=== PATIENT | female | born 1990 | race American Indian/Alaskan Native ===

== ENCOUNTER 2019-03-12 07:57 | Emergency (ER) | payer SELFPAY ==
[2019-03-12] MEDS ORDERED: NACL 0.9% 1000 ML 1,000 ML IV ONE (08:45)
[2019-03-12] MEDS ORDERED: KCL 10MEQ/100ML 0 MEQ/0 ML BAG IV ONE (08:45)
[2019-03-12 09:07] LABS: Basophils % (Auto) 0.5 % (0.0-1.8); Eosinophils % (Auto) 0.5 % (0.0-4.3); Hematocrit 35.7 % (30.3-42.9); Hemoglobin 11.8 gm/dl (10.1-14.3); Lymphocytes # (Auto) 1.1 K/mm3 (1.2-5.4); Lymphocytes % (Auto) 11.6 % (13.4-35.0); Mean Corpuscular HGB Conc 33 % (30-34); Mean Corpuscular Volume 84 fl (79-97); Monocytes # (Auto) 0.6 K/mm3 (0.0-0.8); Monocytes % (Auto) 6.1 % (0.0-7.3); Platelet Count 328 K/mm3 (140-440); Red Blood Count 4.24 M/mm3 (3.65-5.03); Red Cell Distribution Width 15.1 % (13.2-15.2)
[2019-03-12] MEDS: MORPHINE IV ONE ×2 (09:21→10:15)
[2019-03-12] MEDS: ZOFRAN IV ONE ×2 (09:21→10:15)
[2019-03-12 09:30] LABS: Albumin 3.9 g/dL (3.9-5); BUN/Creatinine Ratio 16; Blood Urea Nitrogen 14 mg/dL (7-17); Calcium 8.3 mg/dL (8.4-10.2); Hemolysis Index 91
[2019-03-12 09:56] LABS: Bilirubin,Direct < 0.2 mg/dL (0-0.2)
[2019-03-12 10:03] LABS: Alanine Aminotransferase 18 units/L (7-56)
[2019-03-12 10:30] LABS: Bilirubin,Urine NEG (Negative); Blood,Urine LG (Negative); Color,Urine Yellow (Yellow); Mucus,Urine 1+ /HPF; Urobilinogen,Urine < 2.0 mg/dL (<2.0)
[2019-03-12 10:37] LABS: RBC,Urine > 182.0 /HPF (0.0-6.0)
--- NOTE | 2019-03-12 11:35 | Cat Scan Report ---
PROCEDURE: CT ABDOMEN PELVIS WO CON TECHNIQUE: Multiple contiguous axial images were obtained from the lung bases to the pubic symphysis without administration of IV contrast. Reformatted sagittal and coronal images were available for re view. HISTORY: Abdominal Pain COMPARISONS: None. FINDINGS: Lower thorax: Normal. Liver and biliary tree: Normal noncontrast appearance. Gallbladder: Normal. Spleen: Normal noncontrast appearance. Pancreas: Normal noncontrast appearance. Adrenal glands: Normal noncontrast appearance. Kidneys, ureters, and bladder: There is left hydronephrosis. There is edema of the left kidney. There is a 3 mm calcified stone in the proximal left ureter. There are additional punctate nonobstructive stones in the interpolar region of the left kidney. Normal noncontrast appearance of the right kidney . Decompressed bladder. Bowel:No focal wall thickening. No evidence of obstruction. Normal appendix without surrounding infla mmatory change. Peritoneum:No significant lymphadenopathy. No free air or free fluid. Pelvic organs: Intrauterine device is in place. Normal noncontrast appearance of the ovaries. Vasculature: Normal noncontrast appearance. Abdominal wall: Normal. Bones: Normal. IMPRESSION: 3 mm calcified stone in the proximal left ureter with associated hydronephrosis and renal edema. Additional punctate nonobstructive calculi in the interpolar region of the left kidney. This document is electronically signed by Esthela Bolivar MD., March 12 2019 11:33:16 AM ET
[2019-03-12] MEDS ORDERED: NORCO 5/325 PO ONE (12:11)
--- NOTE | 2019-03-12 12:11 | Emergency Department Report ---
ED Back Pain/Injury HPI - General Chief Complaint: Abdominal Pain Stated Complaint: (L) FLANK PAIN/KIDNEY STONES Time Seen by Provider: 03/12/19 08:45 Source: EMS Limitations: No Limitations - History of Present Illness Initial Comments: Chencho is a very pleasant healthy 28 yo female without significant past medical history who presents with severe left flank pain which awakened her from sleep. Severe 8 out of 10 dull pain radiating to the left lower quadrant. No fever. No trauma. No previous history of kidney stones or kidney infection. Last menstrual period last month. She has irregular bleeding with Mirena IUD in place. Pain is minimal after receiving IV analgesia per EMS. MD Complaint: back pain -: Sudden, This morning Similar Symptoms Previously: No Place: home Radiation: abdomen Severity: severe Severity scale (0 -10): 8 Quality: dull Consistency: constant Improves With: medication (provided per EMS) Worsens With: none Associated Symptoms: denies other symptoms - Related Data Previous Rx's Medication Instructions Recorded Last Taken Type Azithromycin [Zithromax Z-ROSALIA] 250 mg PO DAILY #6 tab 10/16/13 Unknown Rx Butalb/Acetamin/Caff 50-325-40 1 tab PO Q6HR PRN #12 tab 10/13/18 Unknown Rx [Fioricet] Allergies Allergy/AdvReac Type Severity Reaction Status Date / Time No Known Allergies Allergy Verified 03/12/19 09:02 ED Review of Systems ROS: Stated complaint: (L) FLANK PAIN/KIDNEY STONES Other details as noted in HPI Comment: All other systems reviewed and negative Constitutional: denies: fever, malaise Respiratory: denies: cough Cardiovascular: denies: chest pain ED Past Medical Hx - Past Medical History Previous Medical History?: Yes Hx Hypertension: Yes Hx Headaches / Migraines: Yes - Social History Smoking Status: Never Smoker Substance Use Type: Alcohol - Medications Home Medications: Home Medications Medication Instructions Recorded Confirmed Last Taken Type Azithromycin [Zithromax Z-ROSALIA] 250 mg PO DAILY #6 tab 10/16/13 Unknown Rx Butalb/Acetamin/Caff 50-325-40 1 tab PO Q6HR PRN #12 tab 10/13/18 Unknown Rx [Fioricet] ED Physical Exam - General Limitations: No Limitations General appearance: alert, in no apparent distress - Head Head exam: Present: atraumatic, normocephalic - Eye Eye exam: Present: normal appearance - ENT ENT exam: Present: mucous membranes moist - Neck Neck exam: Present: normal inspection - Respiratory Respiratory exam: Present: normal lung sounds bilaterally. Absent: respiratory distress, wheezes, rales, rhonchi - Cardiovascular Cardiovascular Exam: Present: regular rate, normal rhythm, normal heart sounds. Absent: systolic murmur, diastolic murmur, rubs, gallop - GI/Abdominal GI/Abdominal exam: Present: soft, normal bowel sounds. Absent: distended, tenderness, guarding, rebound - Extremities Exam Extremities exam: Present: normal inspection - Back Exam Back exam: Present: normal inspection. Absent: CVA tenderness (R), CVA tenderness (L) - Neurological Exam Neurological exam: Present: alert, oriented X3 - Psychiatric Psychiatric exam: Present: normal affect, normal mood - Skin Skin exam: Present: warm, dry, intact, normal color. Absent: rash ED Course Vital Signs 03/12/19 03/12/19 03/12/19 08:28 08:30 08:32 Temperature 97.8 F Pulse Rate 60 Respiratory 18 Rate Blood Pressure 123/73 118/68 O2 Sat by Pulse 86 100 100 Oximetry ED Medical Decision Making - Lab Data Result diagrams: 03/12/19 08:56 03/12/19 08:56 Laboratory Results - last 24 hr 03/12/19 03/12/19 03/12/19 08:56 08:56 08:56 WBC 9.7 RBC 4.24 Hgb 11.8 Hct 35.7 MCV 84 MCH 28 MCHC 33 RDW 15.1 Plt Count 328 Lymph % (Auto) 11.6 L [place] % (Auto) 6.1 Eos % (Auto) 0.5 Baso % (Auto) 0.5 Lymph # 1.1 L [place] # 0.6 Eos # 0.0 Baso # 0.0 Seg Neutrophils % 81.3 H Seg Neutrophils # 7.9 H Sodium 139 Potassium 4.4 Chloride 106.7 Carbon Dioxide 24 Anion Gap 13 BUN 14 Creatinine 0.9 Estimated GFR > 60 BUN/Creatinine Ratio 16 Glucose 98 Calcium 8.3 L Total Bilirubin 0.20 Direct Bilirubin < 0.2 Indirect Bilirubin 0.0 AST 18 ALT 18 Alkaline Phosphatase 66 Total Protein 7.4 Albumin 3.9 Albumin/Globulin Ratio 1.1 Lipase 27 HCG, Qual Negative Urine Color Urine Turbidity Urine pH Ur Specific [place] Urine Protein Urine Glucose (UA) Urine Ketones Urine Blood Urine Nitrite Urine Bilirubin Urine Urobilinogen Ur Leukocyte Esterase Urine WBC (Auto) Urine RBC (Auto) U Epithel Cells (Auto) Urine Mucus 03/12/19 10:01 WBC RBC Hgb Hct MCV MCH MCHC RDW Plt Count Lymph % (Auto) [place] % (Auto) Eos % (Auto) Baso % (Auto) Lymph # [place] # Eos # Baso # Seg Neutrophils % Seg Neutrophils # Sodium Potassium Chloride Carbon Dioxide Anion Gap BUN Creatinine Estimated GFR BUN/Creatinine Ratio Glucose Calcium Total Bilirubin Direct Bilirubin Indirect Bilirubin AST ALT Alkaline Phosphatase Total Protein Albumin Albumin/Globulin Ratio Lipase HCG, Qual Urine Color Yellow Urine Turbidity Slightly-cloudy Urine pH 7.0 Ur Specific [place] 1.032 H Urine Protein 30 mg/dl Urine Glucose (UA) Neg Urine Ketones Neg Urine Blood Lg Urine Nitrite Neg Urine Bilirubin Neg Urine Urobilinogen < 2.0 Ur Leukocyte Esterase Lg Urine WBC (Auto) 31.0 H Urine RBC (Auto) > 182.0 U Epithel Cells (Auto) 9.0 Urine Mucus 1+ - Radiology Data Radiology results: report reviewed 3 mm proximal ureteral stone with hydronephrosis - Medical Decision Making Ms. Ordonez presents with renal colic, first episode with 3 mm proximal ureteral stone. No signs of sepsis or SIRS. Pain is controlled. Prescribed [place], Flomax and promethazine. Given strong return precautions. She verbalized understanding to return for fever severe pain or vomiting. Discharged with urine strainer and referral to urologist. Critical care attestation.: If time is entered above; I have spent that time in minutes in the direct care of this critically ill patient, excluding procedure time. ED Disposition Clinical Impression: Renal colic on left side, Acute left flank pain, Kidney stone on left side Disposition: DC-01 TO HOME OR SELFCARE Is pt being admited?: No Does the pt Need Aspirin: No Condition: Stable Instructions: Kidney Stones (ED) Referrals: POONAM ABARCA MD [Staff Physician] - 3-5 Days Forms: Work/School Release Form(ED)
[2019-03-12] MEDS ORDERED: TORADOL IV ONE (12:12)
[2019-03-12 13:04] VITALS: BP 127/70
== END 2019-03-12 13:08 | disposition home or self-care (01) ==
LOC: ED 07:57
DX: N23 Unspecified renal colic (principal); N20.0 Calculus of kidney; I10 Essential (primary) hypertension; G43.909 Migraine, unspecified, not intractable, without status migrainosus
CPT/HCPCS: 36415; 74176; 80048; 80076; 81001; 83690; 84703; 85025; 96374; 96375; 99285; J1885; J2270; J2405; J7030; J3480